=== PATIENT | male | born 1985 ===

== ENCOUNTER 2024-07-24 22:48 | Emergency (ER) | payer BC, OTHER ==
[2024-07-25] MEDS: Cyclobenzaprine 10 MG Tab PO ONE (00:29)
== END 2024-07-25 00:34 | disposition home or self-care (01) ==
LOC: JD.ED 22:48
DX: M54.50 Low back pain, unspecified (principal); M54.2 Cervicalgia; F17.210 Nicotine dependence, cigarettes, uncomplicated; V86.56XA Driver of dirt bike or motor/cross bike injured in nontraffic accident, initial encounter
CPT/HCPCS: 70450; 72125; 72128; 72131; 99284; A9270; 99283